=== PATIENT | male | born 1970 | race Caucasian/White ===

== ENCOUNTER 2019-12-27 16:06 | Emergency (ER) | payer SELFPAY ==
[~2019-12-27] VITALS: Ht 160 cm; Wt 82.6 kg
--- NOTE | 2019-12-27 16:06 | NUR ---
Patient BIBA BLS, transferred to bed 10. RN evaluating patient at bedside.
[2019-12-27 16:08] VITALS: BP 126/82
--- NOTE | 2019-12-27 16:15 | NUR ---
Pt biba from outside [facility] for generalized weakness x today. Pt c/o bilateral leg pain. 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 DENIES N/V/D; SKIN IS PINK/WARM/DRY; PT PRESENTS WITH SLEEPINESS AND FATIGUE, AAOX4 WITH EVEN AND STEADY GAIT; LUNGS CLEAR BL; HR EVEN AND REGULAR; PT DENIES ANY FEVER, CP, SOB, OR COUGH AT THIS TIME; PATIENT STATES PAIN OF 8/10 AT THIS TIME; VSS; PATIENT POSITIONED FOR COMFORT; HOB ELEVATED; BEDRAILS UP X1; BED DOWN. ER MD MADE AWARE OF PT STATUS.
--- NOTE | 2019-12-27 16:38 | NUR ---
LAB IS AT BEDSIDE. URINE SPECIMEN COLLECTED AND SENT TO THE LAB.
[2019-12-27 16:48] LABS: BASOPHILS % (AUTO) 0.3 % (0.0-2.0); EOSINOPHILS # (AUTO) 0.2 K/uL (0-0.4); EOSINOPHILS % (AUTO) 1.8 % (0.0-4.0); HEMOGLOBIN 15.4 g/dL (12.0-18.0); LYMPHOCYTES # (AUTO) 2.5 K/uL (2.0-11.5); LYMPHOCYTES % (AUTO) 29.4 % (20.5-51.1); MEAN CORPUSCULAR HEMOGLOBIN 33 pg (27-31); MEAN CORPUSCULAR HGB CONC 33 g/dL (33-37); MEAN CORPUSCULAR VOLUME 98.4 fL (80-94); MONOCYTES # (AUTO) 0.9 K/uL (0.8-1.0); MONOCYTES % (AUTO) 10.4 % (1.7-9.3); NEUTROPHILS # (AUTO) 4.9 K/uL (1.8-7.7); NEUTROPHILS % (AUTO) 58.1 % (42.2-75.2); PLATELET COUNT (AUTO) 202 K/uL (140-450); RED BLOOD CELL COUNT(AUTO) 4.68 MIL/uL (4.20-6.10); RED CELL DISTRIBUTION WIDTH 12.9 % (11.6-13.7); WHITE BLOOD COUNT (AUTO) 8.4 K/uL (4.8-10.8)
[2019-12-27 17:08] LABS: ALBUMIN 3.5 g/dL (3.4-5.0); ANION GAP 14.9 (8-16); ASPARTATE AMINOTRANSFERASE 12 U/L (15-37); CARBON DIOXIDE 21.8 mmol/L (21-32); CHLORIDE 103 mmol/L (98-107); CREATININE 1.2 mg/dL (0.6-1.3); GFR ARICAN-AMERICAN 82 mL/min (>90); GLUCOSE 132 mg/dL (74-106); SODIUM SERUM 137 mmol/L (136-145); TOTAL BILIRUBIN 0.5 mg/dL (0.0-1.0); UREA NITROGEN, BLOOD 15 mg/dL (7-18)
[2019-12-27 17:10] LABS: POTASSIUM 2.7 mmol/L (3.5-5.1)
[2019-12-27] MEDS ORDERED: NACL 0.9% 1,000 ML IV ONE (17:10)
[2019-12-27] MEDS ORDERED: POTASSIUM CHLORIDE 10 MEQ TABER PO ONE (17:10)
--- NOTE | 2019-12-27 17:13 | NUR ---
Patient taken to CT scan via wheelchair by tech.
--- NOTE | 2019-12-27 17:37 | NUR ---
PT IS RESTING IN THE BED WITH SLEEPINESS AND FATIGUE. BP 91/51, HR 71 WILL CONTINUE MONITORING PT'S VITAL SIGNS.
--- NOTE | 2019-12-27 17:51 | NUR ---
Dr. Pastrana is evaluating the patient at bedside.
[2019-12-27 18:24] VITALS: BP 114/54
--- NOTE | 2019-12-27 18:24 | NUR ---
Patient discharged with v/s stable. Written and verbal after care instructions given and explained. Patient alert, oriented and verbalized understanding of instructions. Ambulatory with steady gait. All questions addressed prior to discharge. ID band removed. Patient advised to follow up with PMD. Rx of Potassium given. Patient educated on indication of medication including possible reaction and side effects. Opportunity to ask questions provided and answered.
[2019-12-27 18:26] LABS: APPEARANCE,URINE CLEAR (CLEAR); COLOR,URINE YELLOW (YELLOW)
[2019-12-27 18:27] LABS: BILIRUBIN,URINE NEGATIVE (NEGATIVE); BLOOD, URINE NEGATIVE (NEGATIVE); LEUKOCYTE ESTERASE ,URINE NEGATIVE (NEGATIVE); NITRITE, URINE NEGATIVE (NEGATIVE); UGLUCOSE NEGATIVE (NEGATIVE)
[2019-12-27 18:34] LABS: BARBITURATE, URINE NEGATIVE ng/ml (NEG <=200); BENZODIAZEPINE, URINE NEGATIVE ng/mL (NEG <=200); CANNABINOID, URINE NEGATIVE ng/mL (NEG <=50); COCAINE, URINE NEGATIVE ng/mL (NEG <=300); OPIATE, URINE NEGATIVE ng/mL (NEG <=2000); PHENCYCLIDINE SCREEN,URINE NEGATIVE ng/mL (NEG <=25)
== END 2019-12-27 18:24 | disposition home or self-care (01) ==
LOC: MED 16:06
DX: R53.1 Weakness (principal); E87.6 Hypokalemia
CPT/HCPCS: 36415; 70450; 71045; 80053; 80305; 81003; 85025; 96360; 99285; G0482; J7030; Q0092